=== PATIENT | male | born 1990 | race Caucasian/White ===

== ENCOUNTER 2017-05-29 10:04 | Inpatient (IN) | payer MEDICAID ==
[~2017-05-29] VITALS: Ht 175.3 cm; Wt 79.0 kg
[2017-05-29] MEDS ORDERED: ACETAMINOPHEN 500 MG TABLET ONE (10:49)
[2017-05-29] MEDS ORDERED: DIPH,PERTUSS(ACELL),TET VAC/PF 0.5 ML IM-VACC ONE ×3 (10:49→11:00)
[2017-05-29] MEDS ORDERED: PIPERACILLIN/TAZO/PMX 3.375GM 50 ML ONE (10:49)
[2017-05-29] MEDS ORDERED: SODIUM CHLORIDE 0.9% 1,000ML IVBOLUS ONE (11:00)
[2017-05-29] MEDS ORDERED: ACETAMINOPHEN 500 MG TABLET PO ONE (11:00)
[2017-05-29] MEDS ORDERED: VANCOMYCIN PER PHARMACY MC ONE (11:00)
[2017-05-29] MEDS ORDERED: SODIUM CHLORIDE FLUSH 10ML SYR IVF ONE (11:00)
[2017-05-29] MEDS ORDERED: PHARMACOKINETIC CONSULTATION MC ONE ×2 (11:00→15:30)
[2017-05-29] MEDS ORDERED: LIDOCAINE 1%, 20ML SQ ONE (11:00)
[2017-05-29] MEDS ORDERED: PIPERACILLIN/TAZO/PMX 3.375GM 50 ML IVPB ONE (11:00)
[2017-05-29] MEDS ORDERED: LIDOCAINE 1%, 20ML ONE (11:05)
[2017-05-29 11:13] LABS: HEMATOCRIT 39.2 % (39.2-51.8); HEMOGLOBIN 13.1 g/dL (13.7-18.0); WHITE BLOOD COUNT 17.1 x10^3/uL (3.4-10)
[2017-05-29 11:25] LABS: ASPARTATE AMINO TRANSFERASE 119 U/L (15-37); BLOOD UREA NITROGEN 13 mg/dL (7-18)
[2017-05-29] MEDS ORDERED: VANCOMYCIN 1,600 MG in SODIUM CHLORIDE 0.9% 250 ML IV ONE (11:30)
[2017-05-29 11:51] LABS: RAPID INFLUENZA A Negative (Negative); RAPID INFLUENZA B Negative (Negative)
[2017-05-29 14:19] VITALS: BP 110/74
[2017-05-29] MEDS ORDERED: hydrALAzine 20 MG/ML, 1ML IVPush PRN (15:00)
[2017-05-29] MEDS ORDERED: ONDANSETRON 2MG/ML, 2ML IVPush PRN (15:00)
[2017-05-29] MEDS ORDERED: ACETAMINOPHEN 325 MG TABLET PO PRN (15:00)
[2017-05-29] MEDS ORDERED: TEMAZEPAM 15 MG CAPSULE PO PRN (15:00)
[2017-05-29] MEDS ORDERED: VANCOMYCIN PER PHARMACY MC PRN (15:00)
[2017-05-29] MEDS ORDERED: PHARMACOKINETIC MONITORING MC PRN (15:30)
[2017-05-29] MEDS: AMPICILLIN/SULBACTAM 3 GM in SODIUM CHLORIDE 0.9% 100 ML IV SCH ×2 (17:11→23:23)
[2017-05-29] MEDS: HEPARIN 5,000 UNITS/ML, 1ML SQ SCH (17:11)
[2017-05-29] MEDS: NICOTINE 21 MG/24 HR PATCH.TD24 TD SCH (17:11)
[2017-05-29 18:29] VITALS: BP 110/74
[2017-05-29 19:45] VITALS: BP 113/68
[2017-05-29] MEDS: SODIUM CHLORIDE FLUSH 10ML SYR IVF SCH (21:32)
[2017-05-29] MEDS: BENZONATATE 100 MG CAPSULE PO SCH (23:22)
[2017-05-30] MEDS: VANCOMYCIN 1,600 MG in SODIUM CHLORIDE 0.9% 250 ML IV SCH ×2 (00:07→12:26)
[2017-05-30] MEDS: HEPARIN 5,000 UNITS/ML, 1ML SQ SCH ×3 (00:07→17:44)
[2017-05-30 02:29] VITALS: BP 100/59
[2017-05-30 05:32] LABS: HEMATOCRIT 37.5 % (39.2-51.8); HEMOGLOBIN 12.6 g/dL (13.7-18.0); WHITE BLOOD COUNT 14.6 x10^3/uL (3.4-10)
[2017-05-30 05:37] LABS: BLOOD UREA NITROGEN 11 mg/dL (7-18)
[2017-05-30] MEDS: AMPICILLIN/SULBACTAM 3 GM in SODIUM CHLORIDE 0.9% 100 ML IV SCH ×4 (05:39→22:45)
[2017-05-30 07:10] VITALS: BP 109/71
[2017-05-30] MEDS: SODIUM CHLORIDE FLUSH 10ML SYR IVF SCH ×2 (09:00→20:27)
[2017-05-30] MEDS: BENZONATATE 100 MG CAPSULE PO SCH ×3 (09:23→20:29)
[2017-05-30 12:35] VITALS: BP 111/73
[2017-05-30] MEDS ORDERED: LORazepam 2 MG/ML, 1ML IVPush PRN (16:30)
[2017-05-30] MEDS: NICOTINE 21 MG/24 HR PATCH.TD24 TD SCH (17:44)
[2017-05-30] MEDS: KETOROLAC 30 MG/1 ML IVPush SCH ×2 (17:44→22:45)
[2017-05-30 20:00] VITALS: BP 112/73
[2017-05-30] MEDS ORDERED: TRAZODONE 50MG TABLET PO PRN (20:00)
[2017-05-31] MEDS: VANCOMYCIN 1,600 MG in SODIUM CHLORIDE 0.9% 250 ML IV SCH ×2 (00:20→12:18)
[2017-05-31 00:47] VITALS: BP 130/78
[2017-05-31] MEDS: HEPARIN 5,000 UNITS/ML, 1ML SQ SCH ×2 (01:12→08:34)
[2017-05-31] MEDS: KETOROLAC 30 MG/1 ML IVPush SCH ×2 (04:44→10:30)
[2017-05-31] MEDS: AMPICILLIN/SULBACTAM 3 GM in SODIUM CHLORIDE 0.9% 100 ML IV SCH ×2 (04:44→10:46)
[2017-05-31 07:06] VITALS: BP 109/75
[2017-05-31] MEDS: BENZONATATE 100 MG CAPSULE PO SCH (08:34)
[2017-05-31] MEDS: SODIUM CHLORIDE FLUSH 10ML SYR IVF SCH (08:34)
[2017-05-31] MEDS ORDERED: AMOX1TAB64 PO (12:58)
[2017-05-31 13:14] VITALS: BP 103/65
[2017-05-31] MEDS ORDERED: FLU VACC QS2017-18 (36MOS+) UP/PF 0.5 ML IM-VACC ONE (14:00)
[2017-05-31] MEDS ORDERED: PNEUMOCOCCAL 23 VACCINE IM-VACC ONE (14:00)
== END 2017-05-31 14:40 | disposition home or self-care (01) | DRG 872 ==
LOC: ED 12:03 → EDIP 12:04 → ED 12:23 → 4NOR 13:30
PROVIDERS: ADMIT Internal Medicine; ATTEND Internal Medicine
DX: A41.9 Sepsis, unspecified organism (principal); E44.1 Mild protein-calorie malnutrition; L02.414 Cutaneous abscess of left upper limb; F17.210 Nicotine dependence, cigarettes, uncomplicated; F19.10 Other psychoactive substance abuse, uncomplicated; F15.90 Other stimulant use, unspecified, uncomplicated; Z68.25 Body mass index [BMI] 25.0-25.9, adult
CPT/HCPCS: 36415; 71010; 80053; 80202; 82565; 83605; 84145; 84520; 85025; 87040; 87400; 90471; 90686; 90715; 90732; 93005; 96365; 96367; J0295; J1644; J1885; J2405; J2543; J3370; J3490; J2060; J7030; J7050